=== PATIENT | female | born 1945 | race Caucasian/White ===

== ENCOUNTER 2021-02-27 18:36 | Emergency (ER) | payer OTHER ==
[2021-02-27 19:08] LABS: Protime INR 0.88
[2021-02-27 19:09] LABS: Basophils % 0.2 % (0-1.3); Hematocrit 44.4 % (36.0-45.0); Lymphocytes % 28.4 % (15.3-44.8); MPV 8.2 fL (7.6-11.3); RBC Red Blood Cell Count 4.77 M/uL (3.86-4.86)
[2021-02-27 19:55] LABS: ALT/SGPT 21 U/L (12-78); AST/SGOT 20 U/L (15-37); Albumin 4.3 g/dL (3.4-5.0); Alkaline Phosphatase 76 U/L (45-117); BUN Blood Urea Nitrogen 24 mg/dL (7-18); Bicarbonate 31 mmol/L (21-32); Bilirubin Direct < 0.1 mg/dL (0-0.2); Bilirubin Total 0.4 mg/dL (0.2-1.0); Glucose Level 87 mg/dL (74-106); NT PRO-BNP 130 pg/mL (<450); Potassium 3.2 mmol/L (3.5-5.1); Protein, Total 7.9 g/dL (6.4-8.2); Sodium Level 137 mmol/L (136-145)
--- NOTE | 2021-02-27 19:56 | RAD REPORT ---
EXAM DESCRIPTION: RAD - Chest Single View - 02/27/2021 7:30 pm CLINICAL HISTORY: CHEST PAIN COMPARISON: None TECHNIQUE: AP portable chest image was obtained 02/27/2021 7:30 pm . FINDINGS: No focal mass or consolidation. No failure or volume overload. Interstitial pattern is pro minent but believed to be baseline. Heart and vasculature are normal. No measurable pleural effusion and no pneumothorax. No acute bone findings seen. Scoliosis is present. No acute aortic findings susp ected. IMPRESSION: No acute cardiopulmonary process.
[2021-02-27 20:04] LABS: Troponin (Emerg Dept Use Only) 0.83 ng/mL (0.0-0.045)
[2021-02-27 20:32] LABS: Urine Bacteria NONE SEEN /HPF (<20); Urine RBC <5 /HPF (NONE SEEN)
[2021-02-27] MEDS ORDERED: HEPARIN 5000 UNIT/ML 1 ML VIAL ONE (20:41)
[2021-02-27] MEDS ORDERED: METOPROLOL TAR 25 MG TAB ONE (20:41)
[2021-02-27] MEDS ORDERED: HEPARIN/D5W 25,000 UNIT/500 ML BAG IV ONE (20:41)
[2021-02-27] MEDS ORDERED: ASPIRIN 81 MG CHEWABLE TABLET ONE (20:41)
[2021-02-27] MEDS ORDERED: NITROGLYCERIN 0.4 MG/TAB SL ONE (21:44)
--- NOTE | 2021-02-27 22:02 | ER ---
Nurse's Notes [facility] Name: Imani Archer Age: 76 yrs Sex: Female : 1945 Arrival Date: 02/27/2021 Time: 18:39 Bed 17 Private MD: Diagnosis: Non-ST elevation (NSTEMI) myocardial infarction Presentation: 02/27 18:40 Chief complaint: Patient states: midsternal chest pain with SOB that started about 25 sv mins ago. Risk Assessment: Do you want to hurt yourself or someone else? Patient reports no desire to harm self or others. Onset of symptoms was February 27, 2021. 18:40 Method Of Arrival: Wheelchair sv 18:40 Acuity: DEEPAK 2 sv 19:30 Coronavirus screen: Client denies travel out of the [place] in the last 14 days. Client wh indicates they have traveled out of the [place] in the last 14 days. Ebola Screen: Patient negative for fever greater than or equal to 101.5 degrees Fahrenheit, and additional compatible Ebola Virus Disease symptoms Patient denies exposure to infectious person. Initial Sepsis Screen: Does the patient meet any 2 criteria? No. Patient's initial sepsis screen is negative. Does the patient have a suspected source of infection? No. Patient's initial sepsis screen is negative. Triage Assessment: 18:40 General: Appears uncomfortable, well developed, Behavior is cooperative, crying. Pain: sv Complains of pain in chest Pain currently is 3 out of 10 on a pain scale. Pain began 25 mins ago Is continuous. Neuro: Level of Consciousness is awake, alert, obeys commands, Oriented to person, place, time, situation. Historical: - Allergies: 18:56 No Known Allergies; sv - Home Meds: 18:56 Atenolol Oral [Active]; Furosemide Oral [Active]; levothyroxine oral [Active]; sv calcitriol oral oral [Active]; - PMHx: 18:[address]; [address] 3 kidney disease; sv - Immunization history:: Adult Immunizations unknown. - Social history:: Smoking status: Patient denies any tobacco usage or history of. Screenin:19 Abuse screen: Denies threats or abuse. Denies injuries from another. Nutritional wh screening: No deficits noted. Tuberculosis screening: No symptoms or risk factors identified. Fall Risk None identified. Assessment: 18:50 Reassessment: Informed Dr Castillo of the reason for visit, vitals and s/s. VO received sv for cardiac workup. 19:30 General: Appears in no apparent distress. Behavior is calm, cooperative, appropriate for age. Pain: Complains of pain in chest Pain radiates to jaw Quality of pain is described as squeezing. Pain: Pain currently is 5 out of 10 on a pain scale. Pain began 1 hour ago. Neuro: Level of Consciousness is awake, alert, obeys commands, Oriented to person, place, time, situation, Appropriate for age. Cardiovascular: Heart tones S1 S2 Rhythm is sinus rhythm. Respiratory: Airway is patent Respiratory effort is even, unlabored, Respiratory pattern is regular, symmetrical. Respiratory: Breath sounds are clear bilaterally. GI: Abdomen is flat, non-distended. : No signs and/or symptoms were reported regarding the genitourinary system. EENT: No signs and/or symptoms were reported regarding the EENT system. Derm: Skin is intact, is healthy with good turgor, Skin is pink, warm \T\ dry. normal. Musculoskeletal: Circulation, motion, and sensation intact. 21:00 Reassessment: Patient appears in no apparent distress at this time. No changes from previously documented assessment. Patient and/or family updated on plan of care and expected duration. Pain level reassessed. Patient is alert, oriented x 3, equal unlabored respirations, skin warm/dry/pink. 22:00 Reassessment: Patient appears in no apparent distress at this time. Patient and/or family updated on plan of care and expected duration. Pain level reassessed. Patient is alert, oriented x 3, equal unlabored respirations, skin warm/dry/pink. Provider at bedside explaining POC need for transfer. 23:30 Reassessment: Patient appears in no apparent distress at this time. Patient and/or family updated on plan of care and expected duration. Pain level reassessed. Patient is alert, oriented x 3, equal unlabored respirations, skin warm/dry/pink. Vital Signs: 18:40 BP 171 / 83; Pulse 72; Resp 22; Pulse Ox 100% on R/A; Weight 64.4 kg; Height 5 ft. 5 wh in. (165.10 cm); Pain 3/10; 20:00 BP 151 / 77; Pulse 68; Resp 18; Pulse Ox 100% on R/A; wh 21:00 BP 162 / 79; Pulse 63; Resp 18; Pulse Ox 95% on R/A; wh 22:00 BP 158 / 76; Pulse 58; Resp 18; Pulse Ox 99% on R/A; wh 23:00 BP 147 / 82; Pulse 57; Resp 18; Pulse Ox 100% on R/A; wh 18:40 Body Mass Index 23.63 (64.40 kg, 165.10 cm) ED Course: 18:39 Patient arrived in ED. em1 18:40 Arm band placed on Patient placed in an exam room, on a stretcher, on property assessment monitor, sv on pulse oximetry. 18:41 EKG done, by ED staff, reviewed by Neymar Castillo MD. sv 18:51 Poncho Cheng PA is PHCP. jr8 18:51 Neymar Castillo MD is Attending Physician. jr8 18:54 Triage completed. sv 19:05 Angeles Valdivia, KELSIE is Primary Nurse. bw 19:30 Patient maintains SpO2 saturation greater than 95% on room air. wh 19:30 Patient has correct armband on for positive identification. Placed in gown. Bed in low wh position. Call light in reach. Side rails up X 1. child monitor on. Pulse ox on. NIBP on. 21:26 initiated a transfer with Javier from [facility]. mw2 21:51 doc to doc with the physician from [facility]. mw2 21:54 administrative approval given by Javier Del Cid/ patient has been accepted to [address] 9 B 933/Dr. Saleh has accepted the patient in transfer/ report to be called to [phone]. 22:58 [facility] 35 minutes. mw2 23:38 No provider procedures requiring assistance completed. Patient transferred, IV remains in place. Administered Medications: 20:08 CANCELLED (Physician Discretion): Lovenox (enoxaparin) 1 mg/kg Sub-Q once jr8 20:36 Drug: Heparin (CO-Bolus with thrombolytic) - HEParin 60 units/kg {Co-Signature: cr4 (Santa Hinds RN).} Route: IVP; Site: right antecubital; 23:38 Follow up: Response: No adverse reaction 20:38 Drug: Metoprolol 25 mg Route: PO; 23:38 Follow up: Response: No adverse reaction 20:40 Drug: Heparin (CO Drip) 12 units/kg/hr - (HEParin 65987 units, D5W 500 ml) {Co-Signature: cr4 (Santa Hinds RN).} Route: IV; Rate: calculated rate; Site: right antecubital; 23:38 Follow up: Response: No adverse reaction; IV Status: Infusion continued upon transfer 20:46 Not Given (Patient Refused): Aspirin Chewable Tablet 324 mg PO once; 81 mg tablets x 4 21:30 Drug: Nitroglycerin 0.4 mg Route: Sublingual; 23:38 Follow up: Response: No adverse reaction; Marked relief of symptoms 22:28 Drug: Tylenol 1000 mg Route: PO; 23:37 Follow up: Response: No adverse reaction; Pain is decreased Outcome: 22:01 ER care complete, transfer ordered by MD. gilliam 23:38 Transferred by ground EMS to [facility], Transfer form completed. X-rays sent w/ patient. Note: Report given to [facility] 23:38 Condition: stable 23:38 Instructed on the need for transfer. 23:40 Patient left the ED. Signatures: Germaine Raymundo RN RN sv Martinez, Eric 1 Poncho Cheng PA PA jr8 Chencho Young RN RN Verenice Walden 2 Angeles Valdivia RN RN Santa Hinds RN cr4 Corrections: (The following items were deleted from the chart) 20:19 18:40 BP 171 / 83; Pulse 72bpm; Resp 22bpm; Pulse Ox 100% RA; 63.05 kg; Height 5 ft. 5 in.; BMI: 23.1; Pain 3/10; sv
--- NOTE | 2021-02-27 22:02 | EDPHYS ---
Physician Documentation [facility] Name: Imani Archer Age: 76 yrs Sex: Female : 1945 Arrival Date: 02/27/2021 Time: 18:39 Bed 17 Private MD: ED Physician Neymar Castillo HPI: 02/27 19:06 This 76 yrs old Female presents to ER via Wheelchair with complaints of Chest jr8 Pain. 19:06 Patient presents to ED for chest tightness after a coughing fit. Pt is a poor historian jr8 and was called. 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 He reports undiagnosed dementia and that confusion that is present is not her norm. Pt denies any pain or discomfort during interview. Historical: - Allergies: 18:56 No Known Allergies; sv - Home Meds: 18:56 Atenolol Oral [Active]; Furosemide Oral [Active]; levothyroxine oral [Active]; sv calcitriol oral oral [Active]; - PMHx: 18:[address] 3 kidney disease; sv - Immunization history:: Adult Immunizations unknown. - Social history:: Smoking status: Patient denies any tobacco usage or history of. ROS: 19:11 Cardiovascular: Negative for chest pain, palpitations, and edema, Abdomen/GI: Negative jr8 for abdominal pain, nausea, vomiting, diarrhea, and constipation, Skin: Negative for injury, rash, and discoloration, Neuro: Negative for headache, weakness, numbness, tingling, and seizure. 19:11 Cardiovascular: Positive for Chest tightness. 19:11 Respiratory: Positive for shortness of breath, With coughing. 19:14 All other systems are negative. jr8 Exam: 19:12 Abdomen/GI: Soft, non-tender, with normal bowel sounds. No distension or tympany. No jr8 guarding or rebound. No evidence of tenderness throughout. 19:12 Chest/axilla: Inspection: normal, Palpation: is normal, Axilla: are normal. 19:12 Cardiovascular: Rate: normal, actual rate is 75 bpm, Rhythm: regular, Pulses: Pulses are 2+ in right radial artery, right dorsalis pedis artery, left radial artery and left dorsalis pedis artery. Heart sounds: normal, Edema: is not appreciated. 19:12 Respiratory: the patient does not display signs of respiratory distress, Respirations: normal, Breath sounds: are clear throughout, Respiratory rate: 24 19:12 Neuro: Orientation: to person, place, situation, Mentation: responsive to voice able to follow commands, slow to respond, confused, Memory: remote memory is impaired, recent memory is impaired. Vital Signs: 18:40 BP 171 / 83; Pulse 72; Resp 22; Pulse Ox 100% on R/A; Weight 64.4 kg; Height 5 ft. 5 wh in. (165.10 cm); Pain 3/10; 20:00 BP 151 / 77; Pulse 68; Resp 18; Pulse Ox 100% on R/A; wh 21:00 BP 162 / 79; Pulse 63; Resp 18; Pulse Ox 95% on R/A; wh 22:00 BP 158 / 76; Pulse 58; Resp 18; Pulse Ox 99% on R/A; wh 23:00 BP 147 / 82; Pulse 57; Resp 18; Pulse Ox 100% on R/A; wh 18:40 Body Mass Index 23.63 (64.40 kg, 165.10 cm) MDM: 18:51 Patient medically screened. jr8 19:22 ED course: at bedside. He reports her responses and behavior as normal. . jr8 21:27 Data reviewed: vital signs, nurses notes, lab test result(s), EKG, radiologic studies, [facility] plain films. Data interpreted: Pulse oximetry: on room air is 100 %. Interpretation: normal. Counseling: I had a detailed discussion with the patient and/or guardian regarding: the historical points, exam findings, and any diagnostic results supporting the discharge/admit diagnosis, lab results, radiology results, the need to transfer to another facility, [facility] does not immediately have the required specialist. ED course: Patient still having chest pain. NSTEMI present. 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 Patient will be transferred for cardiac evaluation and possible angioplasty. 22:00 ED course: [facility] Accepted patient for further cardiac evaluation . jr8 02/27 18:50 Order name: Basic Metabolic Panel sv 02/27 18:50 Order name: CBC with Diff sv 02/27 18:50 Order name: LFT's sv 02/27 18:50 Order name: Magnesium sv 02/27 18:50 Order name: NT PRO-BNP sv 02/27 18:50 Order name: PT-INR sv 02/27 18:50 Order name: Troponin (emerg Dept Use Only) sv 02/27 19:12 Order name: CBC with Automated Diff; Complete Time: 19:13 EDMS 02/27 19:13 Order name: Protime (+INR); Complete Time: 19:13 EDMS 02/27 19:16 Order name: Urine Microscopic Only; Complete Time: 20:34 jr8 02/27 20:05 Order name: Basic Metabolic Panel; Complete Time: 20:06 EDMS 02/27 20:05 Order name: Liver (Hepatic) Function; Complete Time: 20:06 EDMS 02/27 20:05 Order name: Troponin (Emerg Dept Use Only); Complete Time: 20:06 EDMS 02/27 20:05 Order name: NT PRO-BNP; Complete Time: 20:06 EDMS 02/27 18:50 Order name: XRAY Chest (1 view) sv 02/27 18:50 Order name: EKG; Complete Time: 18:52 sv 02/27 18:50 Order name: Cardiac monitoring; Complete Time: 18:51 sv 02/27 18:50 Order name: EKG - Nurse/Tech; Complete Time: 18:51 sv 02/27 18:50 Order name: IV Saline Lock; Complete Time: 18:51 sv 02/27 19:57 Order name: RAD; Complete Time: 20:01 EDMS 02/27 20:05 Order name: Magnesium; Complete Time: 20:06 EDMS 02/27 18:50 Order name: Labs collected and sent; Complete Time: 18:51 sv 02/27 18:50 Order name: O2 Per Protocol; Complete Time: 18:51 sv 02/27 18:50 Order name: O2 Sat Monitoring; Complete Time: 18:51 sv 02/27 19:16 Order name: Urine Dipstick-Ancillary (obtain specimen); Complete Time: 19:57 jr8 Administered Medications: 20:08 CANCELLED (Physician Discretion): Lovenox (enoxaparin) 1 mg/kg Sub-Q once jr8 20:36 Drug: Heparin (UT-Bolus with thrombolytic) - HEParin 60 units/kg {Co-Signature: cr4 wh (Santa Hinds RN).} Route: IVP; Site: right antecubital; 23:38 Follow up: Response: No adverse reaction 20:38 Drug: Metoprolol 25 mg Route: PO; 23:38 Follow up: Response: No adverse reaction 20:40 Drug: Heparin (UT Drip) 12 units/kg/hr - (HEParin 33125 units, D5W 500 ml) {Co-Signature: cr4 (Santa Hinds RN).} Route: IV; Rate: calculated rate; Site: right antecubital; 23:38 Follow up: Response: No adverse reaction; IV Status: Infusion continued upon transfer wh 20:46 Not Given (Patient Refused): Aspirin Chewable Tablet 324 mg PO once; 81 mg tablets x 4 21:30 Drug: Nitroglycerin 0.4 mg Route: Sublingual; 23:38 Follow up: Response: No adverse reaction; Marked relief of symptoms 22:28 Drug: Tylenol 1000 mg Route: PO; 23:37 Follow up: Response: No adverse reaction; Pain is decreased Disposition: 02/28 08:19 Co-signature as Attending Physician, Neymar Castillo MD I agree with the assessment and kdr plan of care. Disposition: 02/27/21 22:01 Transfer ordered to [facility]. Diagnosis is Non-ST elevation (NSTEMI) myocardial infarction. - Reason for transfer: Higher level of care. - Accepting physician is Dr. Saleh. - Condition is Stable. - Problem is new. - Symptoms have improved. Signatures: Dispatcher [employer] EDMS Germaine Raymundo RN RN Neymar Castillo MD MD [facility] Poncho Cehng PA PA [facility] Chencho Young RN RN Santa Hinds RN cr4 Corrections: (The following items were deleted from the chart) 02/27 20:08 20:07 Lovenox (enoxaparin) 1 mg/kg Sub-Q once ordered. [place] [id number] 20:10 19:06 Patient presents to ED for chest tightness after a coughing fit. Pt is a poor [facility] historian and was called. He reports undiagnosed dementia and that confusion that is present is not her norm. Pt denies any pain or discomfort during interview. jr 23:40 22:01 02/27/2021 22:01 Transfer ordered to [facility]. Diagnosis is Non-ST elevation (NSTEMI) myocardial infarction. Reason for transfer: Higher level of care. Accepting physician is Dr. Saleh. Condition is Stable. Problem is new. Symptoms have improved. jr8
[2021-02-27] MEDS ORDERED: ACETAMINOPHEN 500 MG TAB ONE (22:43)
[2021-02-28 18:26] VITALS: BP 147/82; O2SAT 100
[2021-03-05 14:01] LABS: Urine Blood Negative (Negative); Urine Glucose Negative (Negative); Urine Protein Negative (Negative); Urine Specific Gravity 1.015 (1.005-1.030)
== END 2021-02-27 23:40 | disposition short-term general hospital (02) ==
LOC: ER 18:36
DX: I21.4 Non-ST elevation (NSTEMI) myocardial infarction (principal); I12.9 Hypertensive chronic kidney disease with stage 1 through stage 4 chronic kidney disease, or unspecified chronic kidney disease; N18.30 Chronic kidney disease, stage 3 unspecified
CPT/HCPCS: 96365; 93005 ×2; 85025; 80048; 36415; 83735; 85610; 80076; 81015; 84484; 83880; 71045; 99285; 96366; J1644 ×2; 81003